=== PATIENT | female | born 1980 | race Caucasian/White ===

== ENCOUNTER → 2021-06-18 07:06 | Outpatient (CLI) | payer OTHER, SELFPAY ==
--- NOTE | 2021-06-18 07:11 | DI.US.S_ITS ---
PROCEDURE: US PELVIC COMPLETE INDICATIONS: OVARIAN CYST TECHNIQUE: Real-time scanning was performed of the pelvic organs, with image documentation. Additional endovaginal scanning was necessary due to incomplete visualization of the adnexal and endometrial structures by transabdominal scanning. COMPARISON: None. FINDINGS: Uterus: Uterus is retroverted and normal in size at 7.9 x 4.7 x 6 cm. The myometrium is mildly heterogeneous. The endometrium measures 12.4 mm combined thickness. Ovaries: The right ovary measures 2.4 x 1.8 x 2.3 cm. The left ovary measures 2.9 x 2.1 x 2 cm. Thick-walled hypoechoic lesion in the left ovary, measuring up to 2.2 cm, which may reflect a hemorrhagic cyst. The ovaries otherwise have a normal sonographic appearance. No adnexal masses are seen. Other: No pathologic free abdominal or pelvic fluid. IMPRESSION: 1. Thick-walled cystic lesion in the left ovary, which may reflect a hemorrhagic cyst. We strive to produce accurate, complete, and clear reports of imaging services. To assist us in improving patient care, this report was composed using standard report templates and voice recognition software. Therefore, it may contain abnormal punctuation, insertions and/or omissions. Occasional wrong-word or sound-alike substitutions may occur. Though we review the report and make efforts to correct it, we do recommend that the report be read carefully in proper context to recognize any text inaccuracies. Dictated by: Jose Chacon M.D. on 06/18/2021 at 8:36 Approved by: Jose Chacon M.D. on 06/18/2021 at 8:49
== END ==
PROVIDERS: PCP Physician Assistant Medical; Referring Provider Obstetrics & Gynecology; Visit Provider Obstetrics & Gynecology
DX: N83.202 Unspecified ovarian cyst, left side (principal)
CPT/HCPCS: 76830; 76856